=== PATIENT | female | born 1965 | race Caucasian/White ===

== ENCOUNTER 2016-12-03 09:19 | Emergency (ER) | payer OTHER ==
[2016-12-03 09:46] VITALS: TEMP 97.7
[2016-12-03 09:53] LABS: % IMMATURE GRANULYOCYTES 0.4 % (0.0-1.1); ABSOLUTE IMMATURE GRANULOCYTES 0.03 10^3/uL (0.00-0.10); ADD DIFF? NO; ADD MORPH? NO; ADD SCAN? NO; ATYPICAL LYMPHOCYTE FLAG 0 (0-99); FRAGMENT RBC FLAG 0 (0-99); HEMATOCRIT 36.2 % (38.0-47.0); LEFT SHIFT FLG 0 (0-99); LIPEMIA HEMOLYSIS FLAG 80 (0-99); MEAN CELL HEMOGLOBIN 29.1 pg (27.9-34.1); MEAN CELL HEMOGLOBIN CONCENTR. 33.1 g/dL (32.4-36.7); MEAN CELL VOLUME 87.7 fL (81.5-99.8); MEAN PLATELET VOLUME 10.2 fL (8.7-11.7); PLATELET CLUMPS FLAG 0 (0-99); PLATELET COUNT 147 10^3/uL (150-400); RED BLOOD CELL COUNT 4.13 10^6/uL (4.18-5.33); RED CELL DISTRIBUTION WIDTH 15.3 % (11.5-15.2)
--- NOTE | 2016-12-03 10:02 | EDPHY ---
H & P Time Seen by Provider: 12/03/16 09:29 HPI/ROS: CHIEF COMPLAINT: Left arm pain HISTORY OF PRESENT ILLNESS: Patient is a 51-year-old female with a history of ITP and multiple PEs who presents emergency department with left arm pain. The patient states she was diagnosed with ITP 6 years ago. She was started on medication. Per report, this caused her to have multiple pulmonary emboli. She was started on warfarin. She now continues to take her ITP medication in addition to warfarin. She has noticed mild dorsal left hand discomfort 2 days ago. She thought that she might have bumped her hand. Pain extends to her left forearm. She has a small palpable mass. There is no reported bruising. No fevers or chills. No pain in her left brachium. No shortness of breath. No chest pain. REVIEW OF SYSTEMS: My complete review of systems is negative except as mentioned in the HPI. Past Medical/Surgical History: Includes ITP, pulmonary emboli Past surgical history: Includes splenectomy and knee surgery Social history: Patient does not smoke. The patient lives in [place]. She is heading home tonight Smoking Status: Former smoker Physical Exam: Vitals noted GENERAL: Well-appearing, in no acute distress, alert. HEENT: Eyes normal to inspection, normal pharynx, no signs of dehydration. NECK: No thyromegaly, no lymphadenopathy, supple. RESPIRATORY: Clear to auscultation bilaterally, no rales, rhonchi or wheezing. CVS: Regular rate and rhythm, no rubs, murmurs, or gallops. ABDOMEN: Soft, nontender, nondistended, no organomegaly. BACK: Normal to inspection, no CVA tenderness. SKIN: Normal color, no rash, warm, dry. No pallor. EXTREMITIES: No pedal edema, no calf tenderness, no Homans sign or cords, no joint swelling. Patient's left forearm appears normal. (the patient states her left or forearm appear slightly swollen to her). There is no redness or warmth. She has brisk capillary refill with normal ulnar radial pulses. No neurologic deficits. Patient has a small palpable mass in the volar aspect of her forearm. This is approximately 1 cm in length. It has more girth than a typical cord. There is no tenderness in the brachium. No palpable cords in the brachium. Strong brachial pulse. NEURO/PSYCH: Alert and oriented x3, normal mood and affect, normal motor sensory exam. No obvious cranial nerve deficit. Constitutional: Initial Vital Signs Temperature (C) 36.5 C 12/03/16 09:19 Heart Rate 64 12/03/16 09:19 Respiratory Rate 18 12/03/16 09:19 Blood Pressure 168/85 H 12/03/16 09:19 O2 Sat (%) 97 12/03/16 09:19 O2 Delivery Mode Room Air Allergies/Adverse Reactions: ciprofloxacin [From Cipro] Allergy (Verified 12/03/16 09:29) Home Medications: Medication Instructions Recorded Prednisone 12/03/16 Prozac 20 MG (*) 12/03/16 Romiplostim 12/03/16 Warfarin Sodium 12/03/16 traZODone 12/03/16 Medical Decision Making - Diagnostics Imaging Results: Imaging Impressions Extremity Venous Study 12/03/16 09:37 Impression: 1. Superficial thrombophlebitis involving the left antecubital vein and distal aspect of the cephalic vein just superior to the antecubital fossa. 2. No deep venous thrombosis. Findings discussed with Emergency Department physician, Ginette De Leon on at 10:19 a.m. ED Course/Re-evaluation: In the emergency department discussed possible etiologies with the patient. IV was placed. Laboratory studies were obtained. Ultrasound of left upper extremity was ordered. I reviewed the patient's laboratory studies. Her hemotocrit was 36. Platelets were slightly low 147. Patient's INR was 2.97. Ultrasound: Please refer the dictated report by Dr. Anatoly Duron. Patient has superficial thrombophlebitis. No DVT. I discussed results with the on-call soiled linen distributor, Dr. Nassar. He did not recommend any change in her medications. She will return to [place] this evening and follow up with her soiled linen distributor. She is given copies of her laboratory studies. She was given warnings prior to leaving. She will return with worsening symptoms. She will use warm compress on her arm. Differential Diagnosis: My differential includes but is not limited to hematoma, phlebitis, thrombophlebitis, DVT, arterial occlusion, thrombocytopenia, cellulitis, abscess , cyst - Data Points Laboratory Results: Laboratory Results 12/03/16 09:50 12/03/16 09:50 12/03/16 12/03/16 12/03/16 09:50 09:50 09:50 WBC 8.45 10^3/uL 10^3/uL (3.80-9.50) RBC 4.13 10^6/uL L 10^6/uL (4.18-5.33) Hgb 12.0 g/dL L g/dL (12.6-16.3) Hct 36.2 % L % (38.0-47.0) MCV 87.7 fL fL (81.5-99.8) MCH 29.1 pg pg (27.9-34.1) MCHC 33.1 g/dL g/dL (32.4-36.7) RDW 15.3 % H % (11.5-15.2) Plt Count 147 10^3/uL L 10^3/uL (150-400) MPV 10.2 fL fL (8.7-11.7) Neut % (Auto) 59.3 % % (39.3-74.2) Lymph % (Auto) 22.8 % % (15.0-45.0) Hitchcock % (Auto) 12.8 % % (4.5-13.0) Eos % (Auto) 4.0 % % (0.6-7.6) Baso % (Auto) 0.7 % % (0.3-1.7) Nucleat RBC Rel Count 0.0 % % (0.0-0.2) Absolute Neuts (auto) 5.01 10^3/uL 10^3/uL (1.70-6.50) Absolute Lymphs (auto) 1.93 10^3/uL 10^3/uL (1.00-3.00) Absolute Monos (auto) 1.08 10^3/uL H 10^3/uL (0.30-0.80) Absolute Eos (auto) 0.34 10^3/uL 10^3/uL (0.03-0.40) Absolute Basos (auto) 0.06 10^3/uL 10^3/uL (0.02-0.10) Absolute Nucleated RBC 0.00 10^3/uL 10^3/uL (0-0.01) Immature Gran % 0.4 % % (0.0-1.1) Immature Gran # 0.03 10^3/uL 10^3/uL (0.00-0.10) PT 30.8 SEC H SEC (12.0-15.0) INR 2.97 H (0.83-1.16) APTT 40.0 SEC H SEC (23.0-38.0) Sodium 137 mEq/L mEq/L (134-144) Potassium 3.9 mEq/L mEq/L (3.5-5.2) Chloride 100 mEq/L mEq/L (97-110) Carbon Dioxide 28 mEq/l mEq/l (22-31) Anion Gap 9 mEq/L mEq/L (8-16) BUN 11 mg/dL mg/dL (7-23) Creatinine 0.7 mg/dL mg/dL (0.6-1.0) Estimated GFR > 60 Glucose 75 mg/dL mg/dL (70-100) Calcium 8.6 mg/dL mg/dL (8.5-10.4) Departure - Departure Disposition: Home, Routine, Self-Care Clinical Impression: Left arm pain, Thrombophlebitis arm Condition: Good Instructions: Arm Pain (ED), Superficial Thrombophlebitis (ED) Additional Instructions: Return with increasing pain, redness, fever, shortness of breath, chest pain or any other concerns. Referrals: UNK,UNK [Other] - As per Instructions
[2016-12-03 10:04] LABS: INR 2.97 (0.83-1.16); PROTIME(PATIENT) 30.8 SEC (12.0-15.0)
[2016-12-03 10:14] LABS: ANION GAP 9 mEq/L (8-16); CALCIUM 8.6 mg/dL (8.5-10.4); CARBON DIOXIDE 28 mEq/l (22-31); CHLORIDE 100 mEq/L (97-110); CREATININE 0.7 mg/dL (0.6-1.0); GLOMERULAR FILTRATION RATE > 60; GLUCOSE 75 mg/dL (70-100); POTASSIUM 3.9 mEq/L (3.5-5.2); SODIUM 137 mEq/L (134-144)
[2016-12-03 10:52] VITALS: BP 123/81; PULSE 53; RESP 16; O2SAT 96
== END 2016-12-03 10:40 | disposition home or self-care (01) ==
LOC: CED 09:19
DX: I80.8 Phlebitis and thrombophlebitis of other sites (principal); Z79.01 Long term (current) use of anticoagulants; Z87.891 Personal history of nicotine dependence
CPT/HCPCS: 80048-PO; 85025-PO; 85610-PO; 85730-PO; 93971-PO